=== PATIENT | female | born 1960 | race Caucasian/White ===

== ENCOUNTER 2022-02-12 20:44 | Outpatient (REF) | payer MEDICARE, MEDICAID, SELFPAY ==
[2022-02-12 21:38] LABS: ALT 19 U/L (14-59); AST 26 U/L (15-37); Albumin 2.8 g/dL (3.4-5.0); Alkaline Phosphatase 237 U/L (46-116); Anion Gap 11.5 mmol/L (3-11); BUN 22 mg/dL (7-18); Bilirubin, Total 0.4 mg/dL (0.2-1.0); CO2 21.5 mmol/L (21.0-32.0); CREATININE 0.6 mg/dL (0.55-1.02); Calcium 8.7 mg/dL (8.5-10.1); Chloride 107 mmol/L (98-107); Glucose 106 mg/dL (74-106); Sodium 140 mmol/L (136-145)
[2022-02-12 21:40] LABS: Abs Immature Grans 0.03 10^3/uL (0.0-0.06); Absolute Basophil Count 0.09 10^3/uL (0.0-0.2); Absolute Eosinophil Count 0.63 10^3/uL (0.0-0.7); Absolute Monocyte Count 0.71 10^3/uL (0.1-0.8); Absolute Neutrophil Count 3.96 10^3/uL (1.2-6.7); Basophils % 1.2; Eosinophils % 8.5; HCT 37.2 % (36.0-46.0); HGB 12.1 g/dL (11.2-15.7); Immature Grans % 0.4; MCH 34.2 pg (27.0-33.0); MCHC 32.5 % (32.0-36.0); MCV 105.1 fL (80-95); MPV 9.1 fL (8.0-11.0); Monocytes % 9.6; Neutrophils % 53.3; Platelet Count 318 10^3/uL (130-400); RBC 3.54 10^6/uL (3.93-5.22); RDW 12.7 % (11.7-14.6); RDW-SD 49.8 fL; WBC 7.42 10^3/uL (4.4-10.8)
[2022-02-12 22:34] LABS: Diff Comment RBC Morph Reviewed; Macrocytosis 3+
== END 2022-02-12 20:45 | disposition home or self-care (01) ==
LOC: LBN 20:44
PROVIDERS: Visit Provider Family Medicine
DX: E87.1 Hypo-osmolality and hyponatremia (principal)
CPT/HCPCS: 80053; 85025

== ENCOUNTER 2022-02-23 10:57 | Outpatient (REF) | payer MEDICARE, MEDICAID, SELFPAY ==
[2022-02-23 13:44] LABS: Abs Immature Grans 0.04 10^3/uL (0.0-0.06); Absolute Basophil Count 0.07 10^3/uL (0.0-0.2); Absolute Eosinophil Count 0.34 10^3/uL (0.0-0.7); Absolute Lymphocyte Count 1.43 10^3/uL (1.2-3.4); Absolute Monocyte Count 1.06 10^3/uL (0.1-0.8); Absolute Neutrophil Count 4.73 10^3/uL (1.2-6.7); Basophils % 0.9; Eosinophils % 4.4; HCT 38.2 % (36.0-46.0); HGB 12.2 g/dL (11.2-15.7); Immature Grans % 0.5; Lymphocytes % 18.6; MCH 32.4 pg (27.0-33.0); MCHC 31.9 % (32.0-36.0); MCV 102 fL (80-95); MPV 9.6 fL (8.0-11.0); Monocytes % 13.8; Neutrophils % 61.8; Platelet Count 345 10^3/uL (130-400); RBC 3.76 10^6/uL (3.93-5.22); RDW 12.5 % (11.7-14.6); RDW-SD 46.6 fL; WBC 7.67 10^3/uL (4.4-10.8)
[2022-02-23 13:53] LABS: Anion Gap 6.1 mmol/L (3-11); BUN 7 mg/dL (7-18); CO2 26.9 mmol/L (21.0-32.0); CREATININE 0.5 mg/dL (0.55-1.02); Calcium 8.5 mg/dL (8.5-10.1); Chloride 108 mmol/L (98-107); Glucose 102 mg/dL (74-106); Magnesium 1.8 mg/dL (1.8-2.4); Sodium 141 mmol/L (136-145)
== END 2022-02-23 10:58 | disposition home or self-care (01) ==
LOC: LBN 10:57
PROVIDERS: Visit Provider Family Medicine
DX: E87.1 Hypo-osmolality and hyponatremia (principal)
CPT/HCPCS: 80048; 83735; 85025